=== PATIENT | male | born 1960 | race Caucasian/White ===

== ENCOUNTER 2020-05-08 22:57 | Emergency (ER) | payer OTHER ==
[~2020-05-08] VITALS: Ht 177.8 cm; Wt 81.6 kg
[2020-05-08 23:00] VITALS: BP 125/75
== END 2020-05-09 00:04 | disposition home or self-care (01) ==
LOC: ER 23:02
DX: R05 Cough (principal); Z20.822 Contact with and (suspected) exposure to COVID-19
CPT/HCPCS: 71045; 87426; 99284; C9803; U0003

== ENCOUNTER 2021-02-06 01:28 | Emergency (ER) | payer OTHER ==
[~2021-02-06] VITALS: Ht 177.8 cm; Wt 79.4 kg
[2021-02-06 01:53] VITALS: BP 120/82
--- NOTE | 2021-02-06 01:56 | NUR ---
PT BIBSELF C/O FEVER, COUGH, AND HEADACHE X10 DAYS. PT BREATHING EVENLY AND UNLABORED. PT ATTACHED TO MONITOR AND POX. MD AT BEDSIDE. PT GIVEN BLANKET AND CALL LIGHT WITHIN REACH
== END 2021-02-06 03:16 | disposition home or self-care (01) ==
LOC: ER 01:35
DX: U07.1 COVID-19 (principal)
CPT/HCPCS: 99283; C9803; U0003

== ENCOUNTER 2023-04-21 19:55 | Emergency (ER) | payer OTHER ==
[~2023-04-21] VITALS: Ht 177.8 cm; Wt 79.4 kg
[2023-04-21] MEDS ORDERED: IPRATROPIUM NEB FS 0.5 MG/2.5 ML AMPUL.NEB NEB ONE (20:30)
[2023-04-21] MEDS ORDERED: ALBUTEROL FS 2.5 MG/3 ML VIAL.NEB ONE (20:30)
[2023-04-21] MEDS ORDERED: predniSONE 20 MG TABLET PO ONE (20:30)
[2023-04-21] MEDS ORDERED: ALBUTEROL FS 2.5 MG/3 ML VIAL.NEB NEB ONE (20:30)
[2023-04-21] MEDS ORDERED: IPRATROPIUM NEB FS 0.5 MG/2.5 ML AMPUL.NEB ONE (20:31)
[2023-04-21 20:32] VITALS: O2SAT 95
[2023-04-21] MEDS ORDERED: predniSONE 20 MG TABLET ONE (20:39)
[2023-04-21 20:43] VITALS: BP 128/80; TEMP 98.4
[2023-04-21 20:47] VITALS: O2SAT 99
[2023-04-21] MEDS ORDERED: ALBU8.5H8 INH (20:52)
[2023-04-21] MEDS ORDERED: GUAI-671 PO (20:52)
[2023-04-21] MEDS ORDERED: AZIT250T PO (20:52)
[2023-04-21] MEDS ORDERED: PRED50TA PO (20:52)
== END 2023-04-21 20:58 | disposition home or self-care (01) ==
LOC: EDUNIT# 19:55 → ER 19:57
DX: J40 Bronchitis, not specified as acute or chronic (principal); R06.2 Wheezing
CPT/HCPCS: 99283; 71045; 94799; 94640; J7512

== ENCOUNTER 2024-06-13 22:02 | Emergency (ER) | payer MEDICAID, MEDICARE, OTHER ==
[~2024-06-13] VITALS: Ht 177.8 cm; Wt 81.6 kg
[~2024-06-13 22:02] MED LIST: ALBU8.5H8 INH; AZIT250T PO; GUAI-671 PO; PRED50TA PO
[2024-06-13 23:09] VITALS: BP 149/80; TEMP 98.4; O2SAT 99
== END 2024-06-14 01:23 | disposition left against medical advice (07) ==
LOC: ER 22:08
DX: R10.32 Left lower quadrant pain (principal); Z53.21 Procedure and treatment not carried out due to patient leaving prior to being seen by health care provider
CPT/HCPCS: 80053-TC; 83690-TC